=== PATIENT | male | born 2000 | race Hispanic/Latino ===

== ENCOUNTER 2020-01-30 06:46 | Emergency (ER) | payer OTHER ==
[~2020-01-30] VITALS: Ht 167.6 cm; Wt 72.1 kg
[2020-01-30 06:46] VITALS: BP 115/54
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
== END 2020-01-30 07:45 | disposition home or self-care (01) ==
LOC: M ED 06:46
DX: S09.90XA Unspecified injury of head, initial encounter (principal); V43.53XA Car driver injured in collision with pick-up truck in traffic accident, initial encounter; Y92.9 Unspecified place or not applicable; Y93.9 Activity, unspecified; Y99.9 Unspecified external cause status